=== PATIENT | female | born 1995 | race Caucasian/White ===

== ENCOUNTER 2022-10-08 09:07 | Emergency (ER) | payer OTHER ==
[2022-10-08 09:16] VITALS: BP 119/70
[2022-10-08 09:27] LABS: RAPID STREP SCREEN Negative (Negative)
[2022-10-08] MEDS ORDERED: CHERRY SYRUP 10 ML UDC PO ONE (09:34)
[2022-10-08] MEDS ORDERED: DEXAMETHASONE 10 MG/ML VIAL PO STA (09:34)
[2022-10-08] MEDS ORDERED: ACETAMINOPHEN 325 MG TABLET PO STA (09:35)
--- NOTE | 2022-10-08 10:07 | ED Physician Documentation ---
PD HPI URI - Stated complaint Stated Complaint: SORE THROAT - Chief complaint Chief Complaint: Heent - History obtained from History obtained from: Patient - Additional information Additional information: Patient is a 27-year-old female with no significant past medical history presenting for evaluation of 4 days of feeling feverish, mild frontal headache, nasal congestion, sore throat. Reports that the sore throat started yesterday and it has become more painful to swallow but she is able to swallow. She has been using ibuprofen and last took a dose this morning around 6 AM. 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 She denies chest pain, difficulty breathing, back pain, dysuria or abdominal pain.She denies concerns for . Review of Systems Constitutional: reports: Fever Nose: reports: Congestion Throat: reports: Sore throat Cardiac: denies: Chest pain / pressure Respiratory: denies: Dyspnea GI: denies: Abdominal Pain : denies: Dysuria Musculoskeletal: denies: Back pain PD PAST MEDICAL HISTORY - Present Medications Home Medications: Ambulatory Orders Medication Instructions Recorded Confirmed No Known Home Medications 10/08/22 10/08/22 - Allergies Allergies/Adverse Reactions: Allergies Allergy/AdvReac Type Severity Reaction Status Date / Time No Known Drug Allergies Allergy Verified 10/08/22 09:11 PD ED PE NORMAL - General General: Alert and oriented X 3, No acute distress, Well developed/nourished - HEENT HEENT: Atraumatic, Moist mucous membranes, Other (Small amount of exudate to left tonsil, uvula is midline, no peritonsillar abscess) - Neck Neck: Supple, no meningeal sign, No bony TTP - Cardiac Cardiac: RRR - Respiratory Respiratory: No respiratory distress, Clear bilaterally - Abdomen Abdomen: Soft, Non tender, Non distended - Back Back: No CVA TTP - Derm Derm: Warm and dry - Extremities Extremities: No edema - Neuro Neuro: Normal speech Results - Vitals Vitals: Vital Signs - 24 hr 10/08/22 09:11 Temperature 39.3 C H Heart Rate 114 H Respiratory 20 Rate Blood Pressure 119/70 O2 Saturation 98 Oxygen O2 Source Room air - Labs Labs: Laboratory Tests 10/08/22 10/08/22 09:15 09:40 Nasal Adenovirus (PCR) NOT DETECTED Nasal B. parapertussis DNA (PCR) NOT DETECTED Nasal Coronavir 229E PCR NOT DETECTED Nasal Coronavir HKU1 PCR NOT DETECTED Nasal Coronavir NL63 PCR NOT DETECTED Nasal Coronavir OC43 PCR NOT DETECTED Nasal Enterovir/Rhinovir PCR NOT DETECTED Nasal Influenza B PCR NOT DETECTED Nasal Influenza A PCR NOT DETECTED Nasal Parainfluen 1 PCR NOT DETECTED Nasal Parainfluen 2 PCR NOT DETECTED Nasal Parainfluen 3 PCR NOT DETECTED Nasal Parainfluen 4 PCR NOT DETECTED Nasal RSV (PCR) NOT DETECTED Nasal B.pertussis DNA PCR NOT DETECTED Nasal C.pneumoniae (PCR) NOT DETECTED Eleazar Human Metapneumo PCR NOT DETECTED Nasal M.pneumoniae (PCR) NOT DETECTED Nasal SARS-CoV-2 (PCR) NOT DETECTED Group A Strep Rapid Negative PD Medical Decision Making - ED course Complexity details: reviewed results, re-evaluated patient, d/w patient ED course: Patient presenting for evaluation of fever and sore throat and congestion for 4 days.She is febrile here with expected tachycardia.On exam she has small amount of left tonsillar exudate. There is no signs of peritonsillar abscess. Her speech appears normal and she is tolerating p.o.No other signs of deep space infection.She does only report having URI symptoms. Her abdominal exam is benign and no dysuria.Her strep test is negative. Her respiratory panel is pending. She was given a dose of Decadron and acetaminophen.Discussed that her symptoms are likely viral in nature but a strep culture is pending and we will notify her if that is abnormal. Patient is counseled to continue with supportive care and is advised on concerning symptoms to return for. Departure - Departure Disposition: 01 Home, Self Care Clinical Impression: Viral pharyngitis, Fever Condition: Stable Instructions: ED Pharyngitis Viral, ED URI Viral Comments: Your strep test is negative. We will send the strep test for a culture and if it is positive we will call you and discuss antibiotics and send a prescription. He did also receive a dose of a long-acting steroid called Decadron. This should help decrease the inflammation you are feeling. The best things you can do for yourself right now are staying hydrated with plenty of fluids and controlling fevers with ibuprofen or acetaminophen. Your respiratory panel is pending. This will check for COVID, influenza, RSV and a number of other common cold viruses. We will notify you if it is positive for COVID. Otherwise you can check the patient portal for your results. You should quarantine from others until you know your COVID result. Please continue with acetaminophen or ibuprofen as needed for fevers and body aches, plenty of fluids/hydration and rest. Return to the ER with any worsening symptoms such as difficulty breathing or vomiting. Forms: Activity restrictions Discharge Date/Time: 10/08/22 10:13
[2022-10-08 10:44] LABS: CORONAVIRUS 229E-RESP PCR NOT DETECTED; CORONAVIRUS HKU1-RESP PCR NOT DETECTED; CORONAVIRUS NL63-RESP PCR NOT DETECTED; CORONAVIRUS OC43-RESP PCR NOT DETECTED; HUMAN METAPNEUMOVIRUS NOT DETECTED; INFLUENZA A- RESP PCR PANEL NOT DETECTED; INFLUENZA B - RESP PCR PANEL NOT DETECTED; PARAINFLUENZA VIRUS 1 NOT DETECTED; PARAINFLUENZA VIRUS 2 NOT DETECTED; PARAINFLUENZA VIRUS 3 NOT DETECTED; PARAINFLUENZA VIRUS 4 NOT DETECTED; RHINOVIRUS/ENTEROVIRUS NOT DETECTED; SARS-CoV-2 -RESP PCR PANEL NOT DETECTED
[2022-10-08 10:45] LABS: B. PARAPERTUSSIS- RESP PCR PAN NOT DETECTED; B. PERTUSSIS- RESP PCR PANEL NOT DETECTED; C. PNEUMONIAE- RESP PCR PANEL NOT DETECTED; M. PNEUMONIAE- RESP PCR PANEL NOT DETECTED; RSV- RESP PCR PANEL NOT DETECTED
--- NOTE | 2022-10-10 16:34 | ED Physician Documentation ---
ED Addendum - Addendum Addendum: 10/10/22 16:33 Patient's throat culture came back positive for group C beta-hemolytic strep. Will place on penicillin. Prescription was sent to [facility] in [place]. Departure - Departure Disposition: 01 Home, Self Care Clinical Impression: Viral pharyngitis, Fever Condition: Stable Instructions: ED Pharyngitis Viral, ED URI Viral Prescriptions: Penicillin V Potassium 500 mg PO Q6HR #40 tablet Comments: Your strep test is negative. We will send the strep test for a culture and if it is positive we will call you and discuss antibiotics and send a prescription. He did also receive a dose of a long-acting steroid called Decadron. This should help decrease the inflammation you are feeling. The best things you can do for yourself right now are staying hydrated with plenty of fluids and controlling fevers with ibuprofen or acetaminophen. Your respiratory panel is pending. This will check for COVID, influenza, RSV and a number of other common cold viruses. We will notify you if it is positive for COVID. Otherwise you can check the patient portal for your results. You s hould quarantine from others until you know your COVID result. Please continue with acetaminophen or ibuprofen as needed for fevers and body aches, plenty of fluids/hydration and rest. Return to the ER with any worsening symptoms such as difficulty breathing or vomiting. Forms: Activity restrictions Discharge Date/Time: 10/08/22 10:13
== END 2022-10-08 10:13 | disposition home or self-care (01) ==
LOC: ED 09:07
DX: J02.8 Acute pharyngitis due to other specified organisms (principal); J02.0 Streptococcal pharyngitis; Z20.822 Contact with and (suspected) exposure to COVID-19
CPT/HCPCS: 87070; 87430; 87633; 99283; A9270

== ENCOUNTER 2023-09-26 15:34 | Emergency (ER) | payer OTHER ==
[2023-09-26 15:48] VITALS: BP 107/63; O2SAT 100
--- NOTE | 2023-09-26 17:59 | ED Physician Documentation ---
PD HPI SKIN - Stated complaint Stated Complaint: LUMP ON FOREHEAD - Chief complaint Chief Complaint: Wound - History obtained from History obtained from: Patient (She had a bump on her head for a long time. Today it popped and a lot of material came out. They show me a picture and it is clearly sebum.) - Additional information Additional information: She is 27 weeks and notes good motion and no fluid loss. PD PAST MEDICAL HISTORY - Past Medical History Past Medical History: No - Past Surgical History Past Surgical History: Yes General: Cholecystectomy - Present Medications Home Medications: Ambulatory Orders Medication Instructions Recorded Confirmed Penicillin V Potassium 500 mg PO Q6HR #40 tablet 10/10/22 - Allergies Allergies/Adverse Reactions: Allergies Allergy/AdvReac Type Severity Reaction Status Date / Time No Known Drug Allergies Allergy Verified 09/26/23 17:50 - Social History Does the pt smoke?: No Smoking Status: Never smoker Does the pt drink ETOH?: No Does the pt have substance abuse?: No - Immunizations Immunizations are current?: Yes PD ED PE NORMAL - Vitals Vital signs reviewed: Yes - General General: Alert and oriented X 3, No acute distress - HEENT HEENT: Other (There is a residual lump on the upper mid forehead without overlying signs of infection consistent with at least partially drained sebaceous cyst.) - Neck Neck: Supple, no meningeal sign, No bony TTP - Neuro Neuro: Alert and oriented X 3, Normal speech Results - Vitals Vitals: Vital Signs - 24 hr 09/26/23 15:41 Temperature 36.8 C Heart Rate 87 Respiratory 16 Rate Blood Pressure 107/63 O2 Saturation 100 Oxygen O2 Source Room air Procedures - Abscess I&D (location) forehead sebaceous cyst Preparation: Lidocaine 1% Incision: Incised with scalpel, Other (Any residual sebum was expressed. I was unable to get the wall with forceps.) Other: Pt tolerated well, Dressing applied Departure - Departure Disposition: Home, Self Care Clinical Impression: Sebaceous cyst Condition: Good Record reviewed to determine appropriate education?: Yes Instructions: ED Cyst Sebaceous Comments: What you have there is a sebaceous cyst on your forehead. It is now completely drained. It may come back, and on the forearm is the name of our surgical office and if it becomes persistent you can follow-up with them for excision, presume they would not do that until the you have delivered your baby. Return if you develop signs of infection such as overlying redness, more drainage or fever.
== END 2023-09-26 18:06 | disposition home or self-care (01) ==
LOC: ED 15:34
DX: O99.712 Diseases of the skin and subcutaneous tissue complicating pregnancy, second trimester (principal); L72.3 Sebaceous cyst; Z3A.27 27 weeks gestation of pregnancy
CPT/HCPCS: 10060